=== PATIENT | female | born 1985 ===

== ENCOUNTER 2019-09-03 10:48 | Outpatient (CLI) | payer BC ==
--- NOTE | 2019-09-03 12:23 | Ultrasound Report ---
ULTRASOUND OBSTETRIC Indication: Z03.74Encounter for suspected problem with growth ruled out Findings: There is a single intrauterine . BPD = 8.3 cm = 33 weeks, 3 day(s). Head circumference = 30.8 cm = 34 weeks, 3 day(s). Abdominal circumference = 29.3 cm = 33 weeks, 2 day(s). Femur length = 6.5 cm = 33 weeks, 4 day(s). Overall estimated sonographic age = 33 weeks, 5 day(s). heart rate is 138 beats per minute. Estimated weight is 2203 grams position is cephalic. Placenta is posterior in the fundus and grade 0 . Amniotic fluid volume appears normal. Amniotic fluid index is 15.4cm Impression: 1. Single living intrauterine with estimated sonographic age of 33 weeks, 5 day(s). 2. No sonographic abnormality identified. Signer Name: Kamaljit Baltazar MD Signed: 09/03/2019 12:18 PM Workstation Name: [id number]
== END 2019-09-03 10:49 | disposition home or self-care (01) ==
LOC: US 10:48
PROVIDERS: ATTEND Obstetrics & Gynecology
DX: Z03.74 Encounter for suspected problem with fetal growth ruled out (principal); Z3A.33 33 weeks gestation of pregnancy
CPT/HCPCS: 76816

== ENCOUNTER 2019-09-09 14:51 | Outpatient (CLI) | payer BC ==
--- NOTE | 2019-09-09 18:19 | Ultrasound Report ---
ULTRASOUND BIOPHYSICAL PROFILE INDICATION / CLINICAL INFORMATION: IUGR/NST. COMPARISON: None available. FINDINGS: BREATHING MOVEMENT = 2 GROSS BODY MOVEMENT = 2 TONE = 2 QUALITATIVE AMNIOTIC FLUID VOLUME = 2 TOTAL BIOPHYSICAL SCORE = 01/28 HEART RATE (beats per minute): 130 IMPRESSION: 1. biophysical profile = 01/28 Signer Name: Jak Abernathy MD Signed: 09/09/2019 6:15 PM Workstation Name: [id number]
== END 2019-09-09 18:54 | disposition home or self-care (01) ==
LOC: TRG 14:51
PROVIDERS: ATTEND Obstetrics & Gynecology
DX: O26.892 Other specified pregnancy related conditions, second trimester (principal); Z3A.36 36 weeks gestation of pregnancy
CPT/HCPCS: 59025; 76819

== ENCOUNTER 2019-09-16 12:26 | Outpatient (CLI) | payer BC ==
--- NOTE | 2019-09-16 17:29 | Ultrasound Report ---
ULTRASOUND OBSTETRIC INDICATION / CLINICAL INFORMATION: growth. Clinical Gestational Age (GA): 37 weeks 6 days TECHNIQUE: Transabdominal. COMPARISON: Obstetric ultrasound 09/03/2019 and 09/09/2019 FINDINGS: There is a single intrauterine . Biparietal Diameter = 8.4 cm = 34 weeks, 0 day(s). Head Circumference = 30.2 cm = 33 weeks, 4 day(s). Abdominal Circumference = 31.3 cm = 35 weeks, 2 day(s). Femur Length = 7.1 cm = 36 weeks, 2 day(s). Average Ultrasound Age (AUA) = 34 weeks, 6 day(s). Heart Rate: 123 beats per minute. Estimated Weight in grams (if calculated): 2617 Position: cephalic. Placenta: posterior and free of the os. Amniotic Fluid Volume: normal Amniotic Fluid Index (SANDIP) in cm (if calculated): 18.1. IMPRESSION: 1. Single, living intrauterine with estimated sonographic age of 34 weeks, 6 day(s). Signer Name: Sayra Serna MD Signed: 09/16/2019 5:24 PM Workstation Name: [id number]
== END 2019-09-16 13:00 | disposition home or self-care (01) ==
LOC: TRG 12:26
PROVIDERS: ATTEND Obstetrics & Gynecology
DX: O47.1 False labor at or after 37 completed weeks of gestation (principal); Z3A.37 37 weeks gestation of pregnancy
CPT/HCPCS: 76816

== ENCOUNTER 2019-09-22 15:46 | Outpatient (CLI) | payer BC ==
[2019-09-22 16:13] VITALS: BP 125/79
--- NOTE | 2019-09-22 17:27 | Ultrasound Report ---
ULTRASOUND BIOPHYSICAL PROFILE INDICATION: DECREASED MOVEMENT. COMPARISON: 09/16/2019 FINDINGS: breathing movement = 2 Gross body movement = 2 tone = 2 Qualitative amniotic fluid volume = 2 Total biophysical score = 8/8 Presentation is Cephalic. heart rate is 143 beats per minute. IMPRESSION: biophysical profile = 01/28 Signer Name: Young Viveros MD Signed: 09/22/2019 5:23 PM Workstation Name: [id number]
== END 2019-09-22 17:15 | disposition home or self-care (01) ==
LOC: TRG 15:46
PROVIDERS: ATTEND Obstetrics & Gynecology
DX: O36.8130 Decreased fetal movements, third trimester, not applicable or unspecified (principal); Z3A.38 38 weeks gestation of pregnancy
CPT/HCPCS: 59025; 76819

== ENCOUNTER 2019-09-25 03:43 | Inpatient (IN) | payer BC ==
[2019-09-25] MEDS ORDERED: TERBUTALINE 1 MG/1 ML INJ SUB-Q PRN (04:09)
[2019-09-25] MEDS ORDERED: LANOLIN/ZINC/DIMETHICONE (LANSINOH) 7 GM TP PRN (04:18)
[2019-09-25] MEDS ORDERED: ONDANSETRON 4 MG/2 ML INJ IV PRN (04:18)
[2019-09-25] MEDS ORDERED: PROMETHAZINE 25 MG RECT SUPP PR PRN (04:18)
[2019-09-25] MEDS ORDERED: WITCH HAZEL/ GLYCERIN PAD TP PRN (04:18)
[2019-09-25] MEDS ORDERED: MAGNESIUM HYDROXIDE (MOM) ORAL LIQD UDC PO PRN (04:18)
[2019-09-25] MEDS ORDERED: diphenhydrAMINE 25 MG CAP PO PRN (04:18)
[2019-09-25] MEDS ORDERED: ACETAMINOPHEN 325 MG TAB PO PRN (04:18)
--- NOTE | 2019-09-25 04:26 | History and Physical Report ---
History of Present Illness Date of examination: 09/25/19 Date of admission: 09/25/19 03:43 Chief complaint: Labor History of present illness: 34 year old female presents to L&C completely diated and needing to push. Patient received care at [facility] and she brings records with her. LMP 10/25/2018. EDC 10/01/2019. significant for insufficient care (patient missed visits), GBS unknown. labs are as follows: O+, rubella immne, hepatitis B surface antigen negative, HIV negative, RPR nonreactive, GC/CT negative, quad screen negative, 1 hour sugar test 99. 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 denies: smoking, IV drug use - Obstetrical History Expected Date of Delivery: 10/01/19 Actual Gestation: 39 Week(s) 1 Day(s) : 2 Para: 1 Hx # Term Pregnancies: 0 Number of Pregnancies: 0 Spontaneous Abortions: 0 Induced : 0 Number of Living Children: 1 Medications and Allergies Allergies Allergy/AdvReac Type Severity Reaction Status Date / Time No Known Allergies Allergy Unverified 09/03/19 10:49 Active Meds: Active Medications Oxytocin/Sodium Chloride (Pitocin/Ns 20 Unit/1000ml Drip) 20 units in 1,000 mls @ 125 mls/hr IV DIRECT [place] Oxytocin/Sodium Chloride (Pitocin/Ns 30 Unit/500ml) 30 units in 500 mls @ 1 mls/hr IV TITR [place]; Protocol Lactated Ringer's (Lactated Ringers) 1,000 mls @ 125 mls/hr IV DIRECT [place] Terbutaline Sulfate (Brethine) 0.25 mg SUB-Q ONCE PRN PRN Reason: Hyperstimulation/Hypertonicity Review of Systems All systems: negative (contractions, need to push) - Vital Signs Vital signs: Vital Signs Temp Pulse Resp BP Pulse Ox 98.4 F 74 18 133/65 98 09/25/19 03:47 09/25/19 03:47 09/25/19 03:47 09/25/19 03:47 09/25/19 03:47 Temp Pulse Resp BP Pulse Ox 98.4 F 69 18 127/58 100 09/25/19 03:47 09/25/19 04:22 09/25/19 03:47 09/25/19 04:19 09/25/19 04:22 - Physical Exam Abdomen: Positive: normal appearance, soft, normal bowel sounds. Negative: distention, tenderness, guarding, rigidity Genitourinary (Female): Positive: normal external genitalia. Negative: perineal/vulvar lesions Vagina: Positive: normal moisture Uterus: Positive: enlarged. Negative: tender Anus/Rectum: Positive: normal perianal skin Extremities: Positive: normal - Obstetrical Uterine Contraction Monitor Mode: External Cervical Dilatation: 10 Cervical Effacement Percentage: 100 station: +2 Uterine Contraction Pattern: Regular Uterine Contraction Intensity: Moderate Results All other labs normal. Assessment and Plan A: at term; imminent delivery. GBS unknown. P: Admit. EFM. GBS prophylaxis. Anticipate vaginal .
--- NOTE | 2019-09-25 04:27 | Procedure Note ---
OB Delivery Note - Delivery Date of Delivery: 09/25/19 Surgeon: BRIDGET PAULA Estimated blood loss: other (150 cc) - Vaginal Delivery presentation: vertex Delivery position: OA Intrapartum events: precipitous labor- <3hr Delivery induction: none Delivery monitor: external FHT, external uterine Route of delivery: Delivery placenta: spontaneous Delivery cord: nuchal cord (tight nuchal cord times 1) Episiotomy: none Delivery laceration: 1st degree Delivery repair: vicryl Anesthesia: none Delivery comments: Spontaneous vaginal delivery of liveborn female at 03:43 with apgars of 9/9. Weight not yet available. Baby was delivered easily and baby was placed skin to skin with mom immediatley after . Spontaneous cry and respirations. 3 vessel cord double clamped and cut after cessation of pulsation. Spontaneous delivery of intact placenta and membranes. EBL 150 cc. Pitocin IM after delivery of placenta. Fundus firm and midline. Vaginal sweep negative. Sponge count correct. First degree perineal laceration repaired with one stich of 3-0 vicryl.
[2019-09-25] MEDS ORDERED: LACTATED RINGERS 1,000 ML IV SCH (05:00)
[2019-09-25] MEDS ORDERED: OXYTOCIN DRIP 30 UNITS/500 ML BAG IV SCH (05:00)
[2019-09-25] MEDS ORDERED: OXYTOCIN 20 UNIT/1000ML DRIP 20 UNITS/1,000 ML BAG IV SCH (05:00)
[2019-09-25] MEDS ORDERED: OXYTOCIN 10 UNIT/1 ML INJ IM ONE (05:13)
[2019-09-25 05:59] LABS: Hematocrit 39.1 % (30.3-42.9); Hemoglobin 13.2 gm/dl (10.1-14.3)
[2019-09-25] MEDS: IBUPROFEN 800 MG TAB PO PRN ×2 (10:28→22:17)
[2019-09-25] MEDS ORDERED: FLU VACC QUAD 2019-20 (3 YR UP)/PF 60 MCG/0.5 ML SYRINGE IM ONE (12:00)
[2019-09-25 13:10] LABS: Basophils % (Auto) 0.3 % (0.0-1.8); Eosinophils % (Auto) 0.2 % (0.0-4.3); Hematocrit 36.5 % (30.3-42.9); Hemoglobin 12.2 gm/dl (10.1-14.3); Lymphocytes # (Auto) 1.5 K/mm3 (1.2-5.4); Lymphocytes % (Auto) 12.2 % (13.4-35.0); Mean Corpuscular HGB Conc 34 % (30-34); Mean Corpuscular Volume 97 fl (79-97); Monocytes # (Auto) 1.4 K/mm3 (0.0-0.8); Monocytes % (Auto) 11.1 % (0.0-7.3); Platelet Count 204 K/mm3 (140-440); Red Blood Count 3.78 M/mm3 (3.65-5.03); Red Cell Distribution Width 12.9 % (13.2-15.2)
[2019-09-25 16:47] LABS: Hemoglobin 12.3 gm/dl (10.1-14.3)
[2019-09-26] MEDS: IBUPROFEN 800 MG TAB PO PRN ×2 (05:40→17:29)
--- NOTE | 2019-09-26 13:22 | Progress Note ---
Assessment and Plan A: day 1 S/P . P: Continue current management. Anticipate discharge home tomorrow if patient continues to do well. Subjective - Subjective Date of service: 09/26/19 Principal diagnosis: day 1 S/P Interval history: day 1 S/P . Doing well. No complaints. Reports small amount of lochia. Patient reports: appetite normal, voiding normally, pain well controlled, flatus, ambulating normally, no dizzy ambulation, no nauseated Mio: doing well Objective - Vital Signs Latest vital signs: Vital Signs Temp Pulse Resp BP Pulse Ox 09/26/19 08:17 97.8 F 66 20 118/69 95 09/25/19 23:46 98.9 F 69 20 133/71 99 Intake and Output 09/25/19 09/26/19 09/26/19 23:59 07:59 15:59 Intake Total 240 240 Output Total 600 600 Balance -360 -360 Intake: Oral 240 240 Output: Urine 600 600 Void 600 600 Other: Total, Intake Amount 240 240 Total, Output Amount 600 600 # Voids Void 2 - Exam Cardiovascular: Present: Regular rate, Normal S1, Normal S2 Lungs: Present: Clear to auscultation Abdomen: Present: normal appearance, soft. Absent: distention, tenderness, g uarding, rigidity Uterus: Present: normal, firm, fundal height below umbilicus. Absent: bogginess, tenderness Extremities: Present: normal. Absent: tenderness
[2019-09-27] MEDS: IBUPROFEN 800 MG TAB PO PRN ×2 (04:04→11:32)
--- NOTE | 2019-09-27 07:01 | Progress Note ---
Assessment and Plan A: day 2 S/P . P: Discharge patient home today. Discussed with patient discharge instructions and warning signs. Advised patient to continue taking her vitamins daily. Advised patient to avoid intercourse, lifting, and housework. Advised patient to follow up at OB clinic in 6 weeks for exam. Yakov francoed understanding of all instructions. Subjective - Subjective Date of service: 09/27/19 Principal diagnosis: day 2 S/P Interval history: day 2 S/P . Doing well. No complaints. Reports small amount of lochia. Patient reports: appetite normal, voiding normally, pain well controlled, flatus, ambulating normally, no dizzy ambulation, no nauseated : doing well Objective - Vital Signs Latest vital signs: Vital Signs Temp Pulse Resp BP Pulse Ox 09/27/19 00:08 97.9 F 65 18 115/60 96 09/26/19 17:29 20 09/26/19 16:26 97.4 F L 72 20 112/68 97 09/26/19 08:17 97.8 F 66 20 118/69 95 Intake and Output 09/26/19 09/26/19 09/27/19 15:59 23:59 07:59 Intake Total 480 240 760 Output Total 600 Balance -120 240 760 Intake: Oral 480 240 Intake, Free Water 760 Output: Urine 600 Void 600 Other: Total, Intake Amount 240 240 Total, Output Amount 600 # Voids Void 1 1 1 - Exam Cardiovascular: Present: Regular rate, Normal S1, Normal S2 Lungs: Present: Clear to auscultation Abdomen: Present: normal appearance, soft. Absent: distention, tenderness, guarding, rigidity Uterus: Present: normal, firm, fundal height below umbilicus. Absent: bogginess, tenderness Extremities: Present: normal. Absent: tenderness
--- NOTE | 2019-09-27 07:04 | Discharge Summary ---
Providers - Providers Date of Admission: 09/25/19 03:43 Date of discharge: 09/27/19 Attending physician: EMIR MTZ Primary care physician: EMIR MTZ Hospitalization Reason for admission: active labor Delivery: Episiotomy: none Laceration: 1st degree complications: none Discharge diagnosis: IUP at term delivered baby: female Pertinent studies: Labs Hospital course: Normal hospital course. Condition at discharge: Good Disposition: DC-01 TO HOME OR SELFCARE - Discharge Diagnoses (1) Term delivered Status: Acute Plan - Provider Discharge Summary Activity: routine, no sex for 6 weeks, no heavy lifting 4 weeks, no strenuous exercise Diet: routine Instructions: routine Additional instructions: Continue taking your vitamins at home. Call your doctor immediately for: * Fever > 100.5 * Heavy vaginal bleeding ( >1 pad per hour) * Severe persistent headache * Shortness of breath * Reddened, hot, painful area to leg or breast - Follow up plan Follow up: EMIR MTZ MD [Primary Care Provider] - 6 Weeks
[2019-09-27] MEDS ORDERED: FLU VACC QUAD 2019-20 (3 YR UP)/PF 60 MCG/0.5 ML SYRINGE IM ONE (11:45)
[2019-09-27 13:06] VITALS: BP 120/69
== END 2019-09-27 12:45 | disposition home or self-care (01) | DRG 807 ==
LOC: LD 03:43 → OB 08:08
PROVIDERS: ADMIT Obstetrics & Gynecology; ATTEND Obstetrics & Gynecology
PROC: 10E0XZZ Delivery of Products of Conception, External Approach (ICD-10-PCS; principal; 2019-09-25)
PROC: 0HQ9XZZ Repair Perineum Skin, External Approach (ICD-10-PCS; 2019-09-25)
DX: O62.3 Precipitate labor (principal); Z37.0 Single live birth; Z3A.39 39 weeks gestation of pregnancy; O69.1XX0 Labor and delivery complicated by cord around neck, with compression, not applicable or unspecified; O70.0 First degree perineal laceration during delivery
CPT/HCPCS: 36415; 59025; 76819; 85014; 85018; 85025; 86592; 86850; 86900; 86901; 90686; 96372; G0378; J2590